=== PATIENT | female | born 1995 | race Two or more races ===

== ENCOUNTER 2021-08-17 18:56 | Emergency (ER) | payer SELFPAY ==
[~2021-08-17] VITALS: Ht 167.6 cm; Wt 65.8 kg
[2021-08-17 18:57] VITALS: BP 130/77
== END 2021-08-18 01:58 | disposition left against medical advice (07) ==
LOC: ER 19:06
DX: R07.89 Other chest pain (principal); R51.9 Headache, unspecified; M54.2 Cervicalgia; Z53.21 Procedure and treatment not carried out due to patient leaving prior to being seen by health care provider; V43.52XA Car driver injured in collision with other type car in traffic accident, initial encounter; Y93.89 Activity, other specified; Y92.410 Unspecified street and highway as the place of occurrence of the external cause; Y99.8 Other external cause status